=== PATIENT | female | born 1955 | race Caucasian/White ===

== ENCOUNTER 2020-10-14 19:08 | Inpatient (IN) | payer MEDICARE, BC, OTHER ==
[~2020-10-14] VITALS: Ht 165.1 cm; Wt 99.2 kg
[2020-10-14] MEDS ORDERED: PRAV20TA2 PO (19:30)
[2020-10-14] MEDS ORDERED: MULT1TAB8 PO (19:30)
[2020-10-14] MEDS ORDERED: FEXO60CA PO (19:30)
[2020-10-14] MEDS ORDERED: GEMFPOW3 XX (19:30)
[2020-10-14] MEDS ORDERED: DILT60TA PO (19:30)
[2020-10-14] MEDS ORDERED: FOLI400T13 PO (19:30)
[2020-10-14] MEDS ORDERED: ASPI81CH48 PO (19:30)
[2020-10-14] MEDS ORDERED: CRAN400C PO (19:30)
[2020-10-14] MEDS ORDERED: [UNRECOGNIZED DRUG - REMARK] PO (19:30)
[2020-10-14] MEDS ORDERED: PANT20TA6 PO (19:30)
[2020-10-14] MEDS ORDERED: HYDR12.55 PO (19:30)
[2020-10-14] MEDS ORDERED: ONDANSETRON 4MG/2ML VIAL IV ONE (20:20)
[2020-10-14] MEDS: MORPHINE 4 MG/ML 1ML VIAL/SYRINGE (J2270) IV PRN ×3 (20:38→21:37)
[2020-10-14] MEDS ORDERED: NS 1,000 ML IV SCH (21:40)
--- NOTE | 2020-10-14 21:40 | REPVR ---
PROCEDURE INFORMATION: Exam: XR Right Tibia and Fibula Exam date and time: 10/14/2020 8:22 PM Age: 65 years old Clinical indication: Pain; Lower leg; Right; Additional info: Trauma TECHNIQUE: Imaging protocol: XR Right tibia and fibula. Views: 2 views. COMPARISON: No relevant prior studies available. FINDINGS: Bones/joints: Oblique fracture of the distal fibula with posterior displacement approximately 1/2 the width of the bone and slight lateral displacement. There is mild lateral and posterior angulation of the distal fragment. Transverse fracture of the base of the medial malleolus with small fracture fragments in the fracture site. There is lateral displacement and mild distraction. There is lateral subluxation of the talar dome relative to the distal tibia approximately the 1/3-1/2 the width of the tibial plafond. There is mild lateral angulation of the talus relative to the distal tibia. The remaining tibia and fibula are intact. Soft tissues: Within normal limits. IMPRESSION: Oblique fracture of the distal fibula with displacement and lateral and posterior angulation of the distal fragment. There is also a distracted and laterally displaced fracture of the medial malleolus with lateral subluxation of the talar dome and mild lateral angulation of the talus. Electronically signed by: Bob Amador On 10/14/2020 21:39:48 PM
--- NOTE | 2020-10-14 21:43 | REPVR ---
PROCEDURE INFORMATION: Exam: XR Right Ankle Exam date and time: 10/14/2020 8:22 PM Age: 65 years old Clinical indication: Pain; Ankle; Right; Additional info: Injury TECHNIQUE: Imaging protocol: XR Right ankle. Views: 3 or more views. COMPARISON: No relevant prior studies available. FINDINGS: Bones/joints: Oblique fracture of the distal fibula with posterior displacement the width of the bone and lateral displacement approximately 1/2 the width of the bone. There is mild lateral and prominent posterior angulation of the distal fragment. There is a distracted transverse fracture through the base of the medial malleolus with lateral displacement the width of the bone. There is also a fracture of the posterior distal tibia with prominent distraction. There is secondary posterior dislocation of the talus with lateral displacement approximately 1/2 the width of the tibial plafond. Soft tissues: Soft tissue swelling about the ankle. IMPRESSION: 1. Trimalleolar fracture of the right ankle with posterior dislocation of the talus and lateral displacement of the talar dome approximately 1/2 the width of the tibial plafond with lateral angulation of the talus. 2. Soft tissue swelling. Electronically signed by: Bob Amador On 10/14/2020 21:42:49 PM
[2020-10-14] MEDS: propofoL 200 MG/20 ML VIAL IV.PROC PRN ×2 (21:55→22:06)
[2020-10-14] MEDS ORDERED: NALOXONE INJ 0.4MG/1ML VIAL (J2310 PER 1MG) IV STA (23:31)
[2020-10-15] VITALS (21 sets, daily range): BP systolic 130–170; BP diastolic 61–88; O2SAT 90–95
[2020-10-15] MEDS ORDERED: NALOXONE INJ 0.4MG/1ML VIAL (J2310 PER 1MG) IV STA (00:38)
[2020-10-15 02:02] LABS: BASO # 0.1 10^3/uL (0.0-0.2); BASO % 0.4 % (0.0-1.0); EOS # 0.1 10^3/uL (0.0-0.5); HEMATOCRIT 40.9 % (36.0-47.0); LYMPH # 1.6 10^3/uL (1.5-5.0); LYMPH % 12.7 % (24.0-44.0); MEAN CORPUSCULAR HEMOGLOBIN 29.7 pg (27.0-33.0); MEAN CORPUSCULAR HGB CONC 31.8 g/dl (32.0-36.5); MEAN CORPUSCULAR VOLUME 93.4 fl (80.0-96.0); MONO # 1.4 10^3/uL (0.0-0.8); MONO % 10.9 % (2.0-8.0); NEUTROPHILS # 9.4 10^3/uL (1.5-8.5); NEUTROPHILS % 74.4 % (36.0-66.0); PLATELET COUNT, AUTOMATED 339 10^3/uL (150-450); RED BLOOD COUNT 4.38 10^6/uL (4.00-5.40); WHITE BLOOD COUNT 12.6 10^3/uL (4.0-10.0)
--- NOTE | 2020-10-15 02:02 | REPVR ---
PROCEDURE INFORMATION: Exam: XR Chest Exam date and time: 10/15/2020 1:56 AM Age: 65 years old Clinical indication: Shortness of breath; Additional info: SOB TECHNIQUE: Imaging protocol: XR of the chest. Views: 1 view. COMPARISON: No relevant prior studies available. FINDINGS: Lungs: Minimal bibasilar atelectasis. Pleural spaces: Unremarkable. No pleural effusion. No pneumothorax. Heart/Mediastinum: Borderline cardiomegaly. Bones/joints: Unremarkable. Soft tissues: There are moderately generous overlying soft tissues. Other findings: Rotation to the left. IMPRESSION: 1. Minimal bibasilar atelectasis. 2. Borderline cardiomegaly. 3. Otherwise negative rotated chest. Electronically signed by: Bob Amador On 10/15/2020 02:01:55 AM
[2020-10-15 02:35] LABS: BLOOD UREA NITROGEN 13 MG/DL (7-18); CALCIUM LEVEL 8.9 MG/DL (8.8-10.2); CARBON DIOXIDE LEVEL 32 MEQ/L (21-32); CHLORIDE LEVEL 103 MEQ/L (98-107); CK-MB VALUE MASS < 1.0 NG/ML (<3.6); CPK CREATINE PHOSPHOKINASE 41 U/L (26-192); CREATININE FOR GFR 0.65 MG/DL (0.55-1.30); GLOMERULAR FILTRATION RATE > 60.0 (>45); GLUCOSE, FASTING 136 MG/DL (70-100); MB/CK RELATIVE INDEX 2.44 (< OR =4); NT-PRO BNP 28 PG/ML (<125); POTASSIUM SERUM 3.1 MEQ/L (3.5-5.1); SODIUM LEVEL 140 MEQ/L (136-145); TROPONIN I < 0.02 NG/ML (< 0.10)
[2020-10-15 02:51] LABS: RSV AMPLIFICATION NEGATIVE (NEGATIVE)
[2020-10-15] MEDS ORDERED: HYDROCORTISONE 100 MG/2 ML VIAL (J1720 PER 1) IV ONE (03:10)
[2020-10-15] MEDS ORDERED: MOM 30ML SUSPENSION UDC PO PRN (03:15)
[2020-10-15] MEDS ORDERED: ACETAMINOPHEN TAB 650MG DOSE (2X325MG) PO PRN (03:15)
[2020-10-15] MEDS ORDERED: MAALOX 30 ML SUSP *UDC PO PRN (03:15)
--- NOTE | 2020-10-15 03:17 | HPEPDOC ---
[facility], [place] Medical History & Physical Date of Admission Oct 15, 2020 Date of Service: Oct 15, 2020 History and Physical TIME OF SERVICE: 358am CHIEF COMPLAINT: fall HISTORY OF PRESENT ILLNESS: had a fall last night as a result of catching her foot on a table while getting up after eating dinner; as a result of the fall she developed a tri-malleolar fx. After she received morphine and propofol the fx was reduced in the ER but thereafter she became hypoxemic as low as 68%. Despite receiving narcan her O2 sats improved to the low 90s on non- rebreather mask. At her baseline she is dependent on 2L of O2. She denies feeling short of breath, having a cough or like her COPD is acting up. REVIEW OF SYSTEMS: 12-point review of systems negative except as listed in HPI PAST MEDICAL/ SURGICAL HISTORY: COPD, Chronic O2 dependent respiratory failure (2L), HTN, DLP, anxiety/depression, remote hx of Afib s/p ablation, recurrent UTIs SOCIAL HISTORY: former smoker FAMILY HISTORY: unknown (she is estranged from her family) ALLERGIES: Please see below. HOME MEDICATIONS: Please see below. PHYSICAL EXAMINATION: VITAL SIGNS: Please see below. GENERAL APPEARANCE: well nourished and developed / NAD HEENT: EOMI /non-rebreather mask in place CARDIOVASCULAR: RRR/NMRG LUNGS: no coughing no wheezing no use of accessory muscles ABDOMEN: contour obese MUSCULOSKELETAL: NCAT / ELLIE x 3 except right ankle which is in a cast INTEGUMENT: not flushed or diaphoretic NEUROLOGICAL: CN 2-12 grossly intact /speech not dysarthric PSYCHIATRIC: A&O x 3 able to understand and follow all commands LABORATORY DATA: IMAGING: Xray ankle #1 IMPRESSION: 1. Trimalleolar fracture of the right ankle with posterior dislocation of the talus and lateral displacement of the talar dome approximately 1/2 the width of the tibial plafond with lateral angulation of the talus. 2. Soft tissue swelling. Xray Tib/Fib IMPRESSION: Oblique fracture of the distal fibula with displacement and lateral and posterior angulation of the distal fragment. There is also a distracted and laterally displaced fracture of the medial malleolus with lateral subluxation of the talar dome and mild lateral angulation of the talus. Chest xray IMPRESSION: 1. Minimal bibasilar atelectasis. 2. Borderline cardiomegaly. 3. Otherwise negative rotated chest. MICROBIOLOGY: respiratory panel neg ASSESSMENT: is a 65 yr old w COPD, Chronic O2 dependent respiratory failure (2L), HTN, DLP, anxiety/depression & remote hx of Afib s/p ablation who developed hypoxemia after receiving morphine and propofol for an ankle r eduction; she will be admitted for evaluation of syncope & hypoxemia. PLAN: 1 Syncope Likely related to meds Plan: telemetry / f/u trops 2 Hypoxemia Likely related to meds Pt denies acute COPD Plan: f/u CTA to r/o PE (bc of her history of contrast allergy steroids and Benadryl have been ordered) / pulse ox / try and wean off O2 3 R ankle Fx Plan: day time team may consider PT eval / Toradol and Acetaminophen for pain / pt declined additional morphine 4 COPD / Chronic O2 dependent respiratory failure (2L) Plan: c/w home meds 5 Essential HTN Plan: Diltiazem, Hydrochlorothiazide 6 DLP Plan: c/w home meds 7 Anxiety/Depression Plan: Fluoxetine, Lorazepam 8 Obesity - complicates care Plan: f/u A1C DVT px w Lovenox Dispo: home after at least 2 midnights stay LATE ENTRY 555AM #Rapid Afib Per d/w CARSON Pastrana the patient went into Afib w RVR after admission; he ordered Metoprolol. Treatment dose lovenox & CTA were already ordered in case she has a PE which could also triggering rapid Afib; I will also order mag and serial trops & will change her admission to in patient status Home Medications Scheduled Aspirin (Aspirin EC) 81 Mg Tablet.dr, 81 MG PO DAILY TAKES AT LUNCH Azathioprine (Azathioprine) 50 Mg Tablet, 150 MG PO DAILY TAKES AROUND 0000 Cholecalciferol (Vitamin D3) (Vitamin D3) 50 Mcg Tablet, 50 MCG PO DAILY TAKES AT LUNCH Cranberry (Cranberry) 400 Mg Capsule, 400 MG PO BID Diltiazem Hcl (Diltiazem 24Hr ER) 360 Mg Cap.er.24h, 360 MG PO DAILY Fluoxetine Hcl (Fluoxetine HCl) 40 Mg Capsule, 40 MG PO DAILY Folic Acid (Folic Acid) 1 Mg Tablet, 1 MG PO DAILY Gemfibrozil (Lopid) 600 Mg Tablet, 600 MG PO BID Hydrochlorothiazide (Hydrochlorothiazide) 25 Mg Tablet, 25 MG PO DAILY Multivitamins (Thera M Plus Tablet) 1 Each Tablet, 1 TAB PO DAILY TAKES AT LUNCH Nitrofurantoin Macrocrystal (Nitrofurantoin) 100 Mg Capsule, 100 MG PO QPM TAKES AT DINNERTIME Pantoprazole Sodium (Pantoprazole Sodium) 40 Mg Tablet.dr, 40 MG PO QPM TAKES AT DINNERTIME Pravastatin Sodium (Pravastatin Sodium) 20 Mg Tablet, 20 MG PO QHS Umeclidinium Brm/Vilanterol Tr (Anoro Ellipta 62.5-25 Mcg INH) 1 Each Blst.w.dev, 1 PUFF INH DAILY Scheduled PRN Albuterol Sulfate (Proair Hfa) 8.5 Gm Hfa.aer.ad, 2 PUFF INH QID PRN for SHORTNESS OF BREATH Lorazepam (Ativan) 0.5 Mg Tablet, 0.5 MG PO QID PRN for ANXIETY Allergies Coded Allergies: Contrast Media (Verified Allergy, Severe, SWELLING & SOB, 10/14/20) A-FIB/CHADSVASC A-FIB History Current/History of A-Fib/PAF?: No Current PO Anticoag Therapy: No GRAYSON HARRELL MD Oct 15, 2020 03:16
[2020-10-15] MEDS: ENOXAPARIN 100MG/1ML SYRINGE (J1650 PER 10MG) SC SCH ×2 (03:43→17:05)
[2020-10-15] MEDS ORDERED: ANOR1AER INH (04:06)
[2020-10-15] MEDS ORDERED: FOLI1TAB11 PO (04:06)
[2020-10-15] MEDS ORDERED: AZAT50TA2 PO (04:06)
[2020-10-15] MEDS ORDERED: HYDR-3490 PO (04:06)
[2020-10-15] MEDS ORDERED: FLUO40CA PO (04:06)
[2020-10-15] MEDS ORDERED: ATIV1TAB10 PO (04:06)
[2020-10-15] MEDS ORDERED: CRAN400C PO (04:06)
[2020-10-15] MEDS ORDERED: PANT40TA29 PO (04:06)
[2020-10-15] MEDS ORDERED: NITR-67 PO (04:06)
[2020-10-15] MEDS ORDERED: PROAAER10 INH (04:06)
[2020-10-15] MEDS ORDERED: DILT1CAP46 PO (04:06)
[2020-10-15] MEDS ORDERED: PRAV20TA2 PO (04:06)
[2020-10-15] MEDS ORDERED: LOPI600T PO (04:06)
[2020-10-15] MEDS ORDERED: VITMTA PO (04:06)
[2020-10-15] MEDS ORDERED: ASPI-161 PO (04:06)
[2020-10-15] MEDS ORDERED: VITA200015 PO (04:06)
[2020-10-15] MEDS ORDERED: ACETAMINOPHEN *IV* 1,000 MG in IV 1 EA IV ONE (04:25)
[2020-10-15] MEDS ORDERED: ALBUTEROL 90 MCG/ACT 8GM HFA INHALER INH PRN (04:25)
[2020-10-15] MEDS: PANTOPRAZOLE 40MG TAB (PROTONIX) PO SCH ×2 (05:46→17:05)
[2020-10-15] MEDS: NITROFURANTOIN (MACROBID) 100 MG CAP PO SCH ×2 (05:46→20:04)
[2020-10-15] MEDS: KETOROLAC 30 MG/ML 1ML VIAL IV SCH ×3 (05:47→21:10)
--- NOTE | 2020-10-15 05:55 | ECGEPIP ---
[facility] Test Date: 2020-10-15 Pat Name: SHANTANU STOVER Department: Room: [place] [address] Gender: Female Master Cook: : 1955 Requested By: BUBBA De León Order Number: [id number] Reading MD: Marielena Monroe Measurements Intervals [place] Rate: 120 P: ME: QRS: 16 QRSD: 94 T: 4 QT: 344 QTc: 486 Interpretive Statements Atrial fibrillation with rapid ventricular responsE ST abnormality PRWP ATRIAL FIBRILLATION IS NEW C/W 10/15/20209 Electronically Signed on 10-15-2020 5:55:06 EDT by Marielena Monroe
[2020-10-15] MEDS: METOPROLOL 5 MG/5 ML VIAL IV SCH ×2 (05:57→07:46)
[2020-10-15 06:03] LABS: ALT/SGPT 103 U/L (12-78); BILIRUBIN,TOTAL 0.5 MG/DL (0.2-1.0); BLOOD UREA NITROGEN 14 MG/DL (7-18); CALCIUM LEVEL 8.6 MG/DL (8.8-10.2); CARBON DIOXIDE LEVEL 29 MEQ/L (21-32); CHLORIDE LEVEL 103 MEQ/L (98-107); CREATININE FOR GFR 0.63 MG/DL (0.55-1.30); GLOMERULAR FILTRATION RATE > 60.0 (>45); GLUCOSE, FASTING 177 MG/DL (70-100); POTASSIUM SERUM 2.9 MEQ/L (3.5-5.1); SODIUM LEVEL 139 MEQ/L (136-145); TOTAL PROTEIN 6.8 GM/DL (6.4-8.2)
[2020-10-15 06:22] LABS: MAGNESIUM LEVEL 1.7 MG/DL (1.8-2.4); TROPONIN I < 0.02 NG/ML (< 0.10)
[2020-10-15] MEDS ORDERED: POTASSIUM CHLORIDE 10 MEQ SR TABLET PO ONE (08:00)
[2020-10-15] MEDS ORDERED: HYDROCORTISONE 100 MG/2 ML VIAL (J1720 PER 1) IV SCH (08:00)
[2020-10-15] MEDS ORDERED: diphenhydrAMINE 50MG/ML VIAL (J1200) IV ONE (08:00)
[2020-10-15] MEDS: FLUoxetine 20 MG CAP PO SCH (08:22)
[2020-10-15] MEDS: diltiaZEM **CD** 180 MG CAP PO SCH (08:23)
[2020-10-15] MEDS: FOLIC ACID 1 MG TAB PO SCH (08:24)
[2020-10-15] MEDS: KCL 10MEQ/100ML SWI (KRUN) 10 MEQ in IV 1 EA IV SCH ×4 (08:25→12:50)
--- NOTE | 2020-10-15 08:42 | REP ---
INDICATION: mini c arm for reduction. COMPARISON: Five views of the right ankle obtained earlier same day TECHNIQUE: Fluoroscopic guidance for close reduction. Five sex of fluoroscopy time was provided FINDINGS: AP and lateral images were obtained. There is poor bony detail. Ankle alignment appears near anatomical. IMPRESSION: As above. Plain radiographic evaluation is suggest <Electronically signed by Wes Valencia > 10/15/20 0811
[2020-10-15] MEDS ORDERED: MAGNESIUM OXIDE 400MG TAB (MAG-OX) PO ONE (10:00)
--- NOTE | 2020-10-15 11:56 | CR ---
CONSULTATION DATE: 10/15/2020 CHIEF COMPLAINT: Right ankle fracture-dislocation. HISTORY OF PRESENT ILLNESS: This 65-year-old female was seen today at [facility] for a right ankle fracture-dislocation. This was consulted to me by Dr. Flynn, the emergency department physician controls engineer. She fell over a table. She lives five hours away and they were doing some camping. This happened about 1.5 hours before I saw the patient today. There is no pain or prior problems with the ankle. PAST MEDICAL HISTORY: Includes chronic obstructive pulmonary disease (COPD), hypertension, anxiety/depression, dyslipidemia. MEDICATIONS: She is unsure but she is not on any anticoagulants. ALLERGIES: DYE and IODINE. SURGICAL HISTORY: Hysterectomy and ablation surgery. SOCIAL HISTORY: She is retired. She likes to spend time with her grandchildren. She is a nonsmoker. PHYSICAL EXAMINATION: This is a well-appearing, 65-year-old female. She looks her stated age. She appears slightly uncomfortable. There is an obvious closed deformity to the right ankle. There is already some ecchymosis and swelling along the medial side. No pain at the knee. Calf is soft. Normal sensation to the superficial and deep peroneal nerves as well as saphenous, sural and tibial. Feet are warm and well perfused. Strong dorsalis pedis pulse. She is able to wiggle her toes. Radiographs to the right ankle demonstrate trimalleolar fracture of the right ankle. Posterior dislocation of the talus, lateral displacement of the talar dome approximately half the width of the tibial plafond with lateral angulation of the talus on tissue swelling. ASSESSMENT AND PLAN: This 65-year-old female has a right ankle trimalleolar fracture-dislocation. This is recommended for an acute closed reduction with sedation, splinting and indicated for outpatient open reduction, internal fixation when the swelling allows. I discussed pros and cons, risks and benefits of going ahead with closed reduction, splinting and achieving adequate reduction in a splint. She lives five hours away and would like to travel back home to have this done. She will have to arrange for outpatient orthopedic acceptance of her care and remain nonweightbearing, elevate the leg and cast care instructions. PROCEDURE NOTE: I discussed pros and cons, risks and benefits of going ahead with the right ankle closed reduction and splinting. The possible risks include, but are not limited to, pain, stiffness, damage to surrounding structures, osteoarthritis, failure to achieve and maintain a closed reduction and other risks. She wished to go ahead and signed consent form for the procedure. I marked the right lower extremity. Sedation was achieved by Dr. Flynn, emergency department physician. I performed pre-procedure timeout to confirm the site, the patient and the procedure. I used longitudinal traction, flexion of the knee and hip, and felt a palpable klunk with the ankle reduced. I placed a below-knee, well-padded, three-sided plaster of megan splint with the foot slightly plantar flexed. I used gentle molding with immediately directed force over the distal fibula to reduce the ankle. I took AP and lateral radiographs in the splint when the splint was fully hardened to confirm the proper reduction using the mini C-arm. Sedation and procedure was terminated. Leg was elevated and neurovascular status checked post-reduction to confirm wiggling the toes, capillary refill of three seconds, and normal sensation.
[2020-10-15] MEDS: ASPIRIN 81MG ENTERIC TABLET PO SCH (12:50)
[2020-10-15] MEDS: VITAMIN D 1,000 INTERNATIONAL UNITS TABLET PO SCH (12:50)
[2020-10-15] MEDS: FORMOTEROL FUMARATE 20 MCG/2 ML INHALATION SOLUTION (PERFOROMIST) INH SCH ×2 (14:05→19:46)
[2020-10-15] MEDS: TIOTROPIUM INHALER/CAPSULE (SPIRIVA) INH SCH (14:06)
--- NOTE | 2020-10-15 20:56 | ECGEPIP ---
[facility] - ED Test Date: 2020-10-15 Pat Name: SHANTANU STOVER Department: Room: [place] [address] Gender: Female Cable Layer: : 1955 Requested By: Tato Verma Order Number: [id number] Reading MD: Tsoin Ochoa Measurements Intervals [place] Rate: 81 P: 82 DE: 152 QRS: 13 QRSD: 92 T: 46 QT: 414 QTc: 480 Interpretive Statements Sinus rhythm with premature atrial complexes Possible Anterior infarct , age undetermined NSTTW abnormalities low voltage limb no prior Electronically Signed on 10-15-2020 20:56:21 EDT by Tosin Ochoa
[2020-10-15] MEDS ORDERED: PRAVASTATIN 20 MG TAB PO SCH (21:00)
[2020-10-15] MEDS: LORazepam 0.5 MG TAB PO PRN (22:41)
[2020-10-16] VITALS (11 sets, daily range): BP systolic 101–124; BP diastolic 55–74; O2SAT 90–94
[2020-10-16] MEDS: ENOXAPARIN 100MG/1ML SYRINGE (J1650 PER 10MG) SC SCH ×2 (05:25→16:00)
[2020-10-16] MEDS: KETOROLAC 30 MG/ML 1ML VIAL IV SCH ×2 (05:25→14:43)
[2020-10-16 05:38] LABS: HEMATOCRIT 37.5 % (36.0-47.0); HEMOGLOBIN 11.9 g/dl (12.0-15.5); MEAN CORPUSCULAR HEMOGLOBIN 29.4 pg (27.0-33.0); MEAN CORPUSCULAR HGB CONC 31.7 g/dl (32.0-36.5); MEAN CORPUSCULAR VOLUME 92.6 fl (80.0-96.0); PLATELET COUNT, AUTOMATED 282 10^3/uL (150-450); RED BLOOD COUNT 4.05 10^6/uL (4.00-5.40); WHITE BLOOD COUNT 10.3 10^3/uL (4.0-10.0)
[2020-10-16 05:59] LABS: BLOOD UREA NITROGEN 13 MG/DL (7-18); CALCIUM LEVEL 8.7 MG/DL (8.8-10.2); CARBON DIOXIDE LEVEL 29 MEQ/L (21-32); CHLORIDE LEVEL 108 MEQ/L (98-107); CREATININE FOR GFR 0.51 MG/DL (0.55-1.30); GLOMERULAR FILTRATION RATE > 60.0 (>45); GLUCOSE, FASTING 127 MG/DL (70-100); POTASSIUM SERUM 3.5 MEQ/L (3.5-5.1); SODIUM LEVEL 143 MEQ/L (136-145)
[2020-10-16] MEDS: LORazepam 0.5 MG TAB PO PRN ×2 (06:43→17:13)
[2020-10-16] MEDS: FORMOTEROL FUMARATE 20 MCG/2 ML INHALATION SOLUTION (PERFOROMIST) INH SCH ×2 (08:00→12:38)
[2020-10-16] MEDS ORDERED: POTASSIUM CHLORIDE 10 MEQ SR TABLET PO ONE (08:00)
[2020-10-16] MEDS: TIOTROPIUM INHALER/CAPSULE (SPIRIVA) INH SCH (08:00)
--- NOTE | 2020-10-16 08:48 | REP ---
INDICATION: R/o PE. COMPARISON: Chest radiograph 10/15/2020. TECHNIQUE/RADIOTRACER AND DOSE: Following the intravenous administration of 5.4 mCi technetium 99 M tagged MAA and the inhalation of 1.0 mCi technetium 99 M DTPA aerosol, anterior and posterior images are performed. Further imaging could not be performed due to severe claustrophobia. FINDINGS: Large matching ventilation and perfusion defects are seen involving the right mid and upper lung zones. Subsegmental perfusion defects in the left upper lobe demonstrate larger ventilation defects. IMPRESSION: Limited exam due to severe claustrophobia. Findings most compatible with an intermediate probability of pulmonary embolism. <Electronically signed by Ernie Piper > 10/16/20 0837
[2020-10-16] MEDS: diltiaZEM **CD** 180 MG CAP PO SCH (08:52)
[2020-10-16] MEDS: FOLIC ACID 1 MG TAB PO SCH (08:52)
[2020-10-16] MEDS: FLUoxetine 20 MG CAP PO SCH (08:53)
--- NOTE | 2020-10-16 10:39 | IPNPDOC ---
Text Note Date of Service The patient was seen on 10/16/20. NOTE Subjective: Patient seen and examined this morning at bedside. Patient tells me he is feeling a lot better she hasn't had any syncopal episodes and her oxygen has been stable she doesn't feel short of breath she's back to her baseline 2 L of oxygen. She understands that she will be following up with her primary care physician with told that they will be providing her with a referral for orthopedic surgery close to her home for open reduction.. She was seen by physical therapy for home safety evaluations morning as she remains nonweightbearing. No acute overnight events reported to me. She denies any fevers or chills or shortness of breath. Objective: Constitutional: Awake and alert, in no apparent distress ENT: Sclera are clear. Mucosa is moist. Respiratory: Lungs CTA bilaterally. No respiratory distress. On 2 L of oxygen by NC Cardiovascular: RRR S1 and S2 are normal, no murmur Gastrointestinal: Abdomen is soft, non distended, non tender, BS present. Musculoskeletal: Cast around right ankle/leg Neurologic: No focal neurological deficit. Mental Status: A&O x3, normal affect Skin: Warm, dry Assessment/plan: is a 65 yr old w COPD, Chronic O2 dependent respiratory failure (2L), HTN, DLP, anxiety/depression & remote hx of Afib s/p ablation who developed hypoxemia after receiving morphine and propofol for an ankle reduction; she will be admitted for evaluation of syncope & hypoxemia. # R ankle Fx: PT for HSE. Per Dr Wilson he performed right ankle closed reduction and splinting and instructed patient to follow up with orthopedic nick geon closer to her home once swelling goes down for open reduction. remain nonweightbearing, elevate the leg and cast care instructions. # Syncope & Hypoxemia: fully resolved. Back to baseline. Likely related to morphine and propofol for an ankle reduction as symptoms were transient and resolved after. D dimer only minimally increased better explained by foot fracture. Well score is low risk for PE. # COPD / Chronic O2 dependent respiratory failure (2L). Not in exacerbation. c/w home meds # Essential HTN: Diltiazem, Hydrochlorothiazide # DLP: c/w home meds # Anxiety/Depression: Fluoxetine, Lorazepam # Obesity: complicates care A Yousef Hospitalist VS,Farideh, I+O VS, Fishbone, I+O Laboratory Tests 10/16/20 05:01 Vital Signs Date Time Temp Pulse Resp B/P (MAP) Pulse Ox O2 Delivery O2 Flow Rate FiO2 10/16/20 08:52 80 110/60 10/16/20 07:13 97.6 18 92 Nasal Cannula 2.0 10/15/20 04:28 40 I&O- Last 24 Hours up to 6 AM 10/16/20 05:59 Intake Total 1040 ml Output Total 1450 ml Balance -410 ml ANA GREEN MD Oct 16, 2020 10:39
[2020-10-16] MEDS: ASPIRIN 81MG ENTERIC TABLET PO SCH (12:38)
[2020-10-16] MEDS: VITAMIN D 1,000 INTERNATIONAL UNITS TABLET PO SCH (12:38)
== END 2020-10-16 17:19 | disposition home or self-care (01) | DRG 312 ==
LOC: EDBD 19:08 → M ED 19:08 → M ED INP 10-15 03:30 → ENRESERVTM 10-15 03:44 → ENRESERVDT 10-15 03:44 → M PCU 10-15 04:27 → M ED INP 10-15 04:27 → OBSVTOIN 10-15 06:05 → UNDODISOB 10-16 17:19
PROVIDERS: ADMIT Internal Medicine; ATTEND Internal Medicine
PROC: 0QSGXZZ Reposition Right Tibia, External Approach (ICD-10-PCS; principal; 2020-10-15)
DX: R55 Syncope and collapse (principal); J96.11 Chronic respiratory failure with hypoxia; T40.2X5A Adverse effect of other opioids, initial encounter; J44.9 Chronic obstructive pulmonary disease, unspecified; S82.431A Displaced oblique fracture of shaft of right fibula, initial encounter for closed fracture; S82.851A Displaced trimalleolar fracture of right lower leg, initial encounter for closed fracture; I10 Essential (primary) hypertension; E78.5 Hyperlipidemia, unspecified; F41.9 Anxiety disorder, unspecified; F32.9 Major depressive disorder, single episode, unspecified; Z87.891 Personal history of nicotine dependence; W18.09XA Striking against other object with subsequent fall, initial encounter; Y92.833 Campsite as the place of occurrence of the external cause; Y93.89 Activity, other specified; Z99.81 Dependence on supplemental oxygen; E66.9 Obesity, unspecified; Z79.82 Long term (current) use of aspirin; Z79.899 Other long term (current) drug therapy; Z91.041 Radiographic dye allergy status; Z68.36 Body mass index [BMI] 36.0-36.9, adult